=== PATIENT | female | born 1970 | race Caucasian/White ===

== ENCOUNTER 2017-06-16 03:19 | Emergency (ER) | payer BC ==
[~2017-06-16] VITALS: Ht 162.6 cm; Wt 65.9 kg
[2017-06-16 04:15] LABS: EOS # 0.1 (0.04-0.40); EOS % 1.1 % (1.0-5.0); HEMATOCRIT 40.5 % (37.0-47.0); LYMPH# 2.2 (1.50-4.00); MEAN CELL VOLUME 91 fl (78-100); MEAN CORPUSCULAR HEMOGLOBIN 31 pg (27-31); MEAN CORPUSCULAR HGB CONC 35 g/dL (33-37); MEAN PLATELET VOLUME 9.7 fl (7.4-10.4); MONO # 0.4 (0.20-0.80); NEU # 2.8 (1.40-6.50); PLATELET COUNT 219 K/mm3 (130-400); RED BLOOD COUNT 4.47 M/mm3 (4.10-5.30); RED CELL DISTRIBUTION WIDTH 12.3 % (11.5-14.5); WHITE BLOOD COUNT 5.5 K/mm3 (4.8-10.8)
[2017-06-16 04:26] LABS: BUN/CREATININE RATIO 20.7 (6.0-26.0); CALCIUM 8.9 mg/dL (8.4-10.2); POTASSIUM 3.9 mmol/L (3.6-5.0); TOTAL BILIRUBIN 0.8 mg/dL (0.2-1.3); TOTAL PROTEIN 7.7 g/dL (6.3-8.2)
[2017-06-16 04:37] LABS: D-DIMER 0.3 mg/L FEU (0.15-0.50)
[2017-06-16] MEDS ORDERED: LORAZEPAM0.5 M1 PO (04:49)
[2017-06-16 04:53] VITALS: BP 148/84
== END 2017-06-16 04:54 | disposition home or self-care (01) ==
LOC: ED 03:19
PROVIDERS: Family Medicine
DX: F41.9 Anxiety disorder, unspecified (principal)

== ENCOUNTER → 2018-03-26 | Outpatient (CLI) | payer BC ==
[~2018-03-26] MED LIST: BUSPAR 15MG TAB15 MG PO; KLONOPIN 0.5MG0.5 MG PO; LORAZEPAM0.5 M1 PO; MACROBID 100 M100 MG PO; PROAIR HFA0.09 MG/AC IH; TRAMADOL 50 MG TAB PO; ZOFRAN ODT4 MG PO
== END ==
LOC: MAMMO 14:19
DX: Z12.31 Encounter for screening mammogram for malignant neoplasm of breast (principal)

== ENCOUNTER 2018-03-27 08:56 | Emergency (ER) | payer BC ==
[~2018-03-27] VITALS: Ht 162.6 cm; Wt 65.9 kg
[~2018-03-27 08:56] MED LIST changes: -BUSPAR 15MG TAB15 MG PO; -KLONOPIN 0.5MG0.5 MG PO; -MACROBID 100 M100 MG PO; -PROAIR HFA0.09 MG/AC IH; -TRAMADOL 50 MG TAB PO; -ZOFRAN ODT4 MG PO
[2018-03-27] MEDS ORDERED: BUSPAR 15MG TAB15 MG PO (09:05)
[2018-03-27] MEDS ORDERED: PROAIR HFA0.09 MG/AC IH (09:05)
[2018-03-27] MEDS ORDERED: TRAMADOL 50 MG TAB PO (09:05)
[2018-03-27 09:51] LABS: EOS % 0.4 % (1.0-5.0); HEMOGLOBIN 15.1 g/dL (12.5-16.0); LYMPH# 2.1 (1.50-4.00); MEAN CELL VOLUME 92 fl (78-100); MEAN CORPUSCULAR HEMOGLOBIN 32 pg (27-31); MEAN CORPUSCULAR HGB CONC 34 g/dL (33-37); MEAN PLATELET VOLUME 10.3 fl (7.4-10.4); MONO # 0.7 (0.20-0.80); NEU # 5.2 (1.40-6.50); PLATELET COUNT 256 K/mm3 (130-400); RED BLOOD COUNT 4.79 M/mm3 (4.10-5.30); RED CELL DISTRIBUTION WIDTH 12.5 % (11.5-14.5)
[2018-03-27 10:04] LABS: ALBUMIN 4.3 g/dL (3.5-5.0); CALCIUM 9.4 mg/dL (8.4-10.2); POTASSIUM 3.9 mmol/L (3.6-5.0); TOTAL PROTEIN 7.8 g/dL (6.3-8.2)
[2018-03-27 10:07] LABS: URINE APPEARANCE HAZY; URINE COLOR YELLOW; URINE PROTEIN(semi-quant) TRACE mg/dL (NEGATIVE)
[2018-03-27 10:08] LABS: URINE BILIRUBIN NEGATIVE (NEGATIVE); URINE BLOOD NEGATIVE (NEGATIVE); URINE GLUCOSE NEGATIVE (NEGATIVE); URINE KETONE NEGATIVE (NEGATIVE); URINE LEUKOCYTE ESTERASE NEGATIVE (NEGATIVE); URINE NITRATE POSITIVE (NEGATIVE); URINE UROBILINOGEN NORMAL (NORMAL)
[2018-03-27] MEDS ORDERED: ZOFRAN ODT4 MG PO (11:40)
[2018-03-27] MEDS ORDERED: KLONOPIN 0.5MG0.5 MG PO (11:40)
[2018-03-27 11:45] VITALS: BP 154/94
[2018-03-27] MEDS ORDERED: MACROBID 100 M100 MG PO (13:15)
[2018-03-28 07:45] LABS: CA-125 12.9 U/mL (0.0-35.0)
[2018-03-31 09:28] LABS: LYME DISEASE PCR BLOOD AMS
== END 2018-03-27 11:44 | disposition home or self-care (01) ==
LOC: ED 08:56
PROVIDERS: Nurse Practitioner Primary Care
DX: R53.81 Other malaise (principal); F41.9 Anxiety disorder, unspecified; E86.0 Dehydration; N39.0 Urinary tract infection, site not specified

== ENCOUNTER → 2021-01-11 | Outpatient (CLI) | payer SELFPAY ==
[~2021-01-11] MED LIST changes: +BUSPAR 15MG TAB15 MG PO; +KLONOPIN 0.5MG0.5 MG PO; +MACROBID 100 M100 MG PO; +PROAIR HFA0.09 MG/AC IH; +TRAMADOL 50 MG TAB PO; +ZOFRAN ODT4 MG PO
== END ==
LOC: RAD 09:48
DX: R18.8 Other ascites (principal); R10.2 Pelvic and perineal pain
CPT/HCPCS: Q9967

== ENCOUNTER → 2024-04-20 | Outpatient (CLI) | payer BC | LOC: MAMMO 15:32 | DX: Z12.31 Encounter for screening mammogram for malignant neoplasm of breast (principal) ==